=== PATIENT | female | born 1990 | race Caucasian/White ===

== ENCOUNTER 2017-11-09 17:12 | Observation (INO) | payer OTHER ==
[2017-11-09] MEDS ORDERED: PNV11TAB PO (17:59)
[2017-11-09 18:01] VITALS: BP 134/89
[2017-11-09 18:46] LABS: BASOPHILS % (AUTO) 0.7 % (0.0-2.0); EOSINOPHILS % (AUTO) 1.5 % (1.0-6.0); HEMATOCRIT 33.8 % (36-46); HEMOGLOBIN 11.5 g/dL (12.0-16.0); LYMPHOCYTES # (AUTO) 2.4 K/uL (1.0-4.8); LYMPHOCYTES % (AUTO) 22.4 % (22.0-44.0); MEAN CORPUSCULAR VOLUME 79 fL (80-100); MONOCYTES # (AUTO) 0.6 K/uL (0.1-1.0); MONOCYTES % (AUTO) 5.5 % (2.0-9.0); NEUTROPHILS # (AUTO) 7.5 K/uL (1.8-7.7); NEUTROPHILS % (AUTO) 69.9 % (40.0-70.0); PLATELET COUNT (AUTO)-OB 283 K/uL (150-450); RED BLOOD CELL COUNT(AUTO) 4.26 MIL/uL (4.00-5.20); RED CELL DISTRIBUTION WIDTH 14.3 % (11.5-14.5)
[2017-11-09 18:59] LABS: ANION GAP 7 mmol/L (8-16); CALCIUM, TOTAL 9.2 mg/dL (8.8-10.5); CARBON DIOXIDE 27 mmol/L (22-29); CHLORIDE 102 mmol/L (98-107); CREATININE 0.55 mg/dL (0.60-1.30); GLOMERULAR FILTR. RATE CALC > 60 mL/min (>60); GLUCOSE,RANDOM 91 mg/dL (70-110); POTASSIUM 4.1 mmol/L (3.5-5.1); SODIUM SERUM 136 mmol/L (136-145); UREA NITROGEN, BLOOD 10 mg/dL (7-18)
[2017-11-09 19:13] LABS: ALANINE AMINOTRANSFERASE 20 U/L (12-78); ALBUMIN 2.3 g/dL (3.4-5.0); ALKALINE PHOSPHATASE 154 U/L (46-116); ASPARTATE AMINOTRANSFERASE 15 U/L (15-37); TOTAL PROTEIN, SERUM 6.9 g/dL (6.4-8.2)
[2017-11-09 20:13] LABS: BILIRUBIN,TOTAL 0.1 mg/dL (0.1-1.0)
== END 2017-11-09 21:25 | disposition home or self-care (01) ==
LOC: 4S 17:12
PROVIDERS: ADMIT Specialist; ATTEND Specialist
DX: Z34.93 Encounter for supervision of normal pregnancy, unspecified, third trimester (principal); Z3A.36 36 weeks gestation of pregnancy
CPT/HCPCS: 36415; 59025; 76805; 80053; 84550; 85025; G0378

== ENCOUNTER 2017-11-11 17:13 | Inpatient (IN) | payer OTHER ==
[~2017-11-11] VITALS: Ht 157 cm; Wt 67.6 kg
[~2017-11-11 17:13] MED LIST: PNV11TAB PO
[2017-11-11] MEDS ORDERED: RINGERS SOLUTION,LACTATED 1,000 ML IV PRN (17:27)
[2017-11-11] MEDS ORDERED: RINGERS SOLUTION,LACTATED 1,000 ML IV SCH (17:27)
[2017-11-11] MEDS ORDERED: MAGNESIUM SULFATE 4 GM/WATER 100 ML IV ONE (17:30)
[2017-11-11] MEDS ORDERED: METOCLOPRAMIDE HCL 5 MG/ML 2 ML VIAL IVP PRN (17:30)
[2017-11-11] MEDS ORDERED: CITRIC ACID/SODIUM CITRATE 30 ML SOLUTION UDCUP PO PRN (17:30)
[2017-11-11] MEDS ORDERED: OXYTOCIN 30 UNITS/LACT RINGERS 500 ML IV PRN (17:42)
[2017-11-11] MEDS ORDERED: AMPICILLIN SODIUM 2 GM/NS 100 ML IV ONE ×2 (17:42→17:45)
[2017-11-11] MEDS ORDERED: MAGNESIUM SULFATE 500 ML IV SCH (17:45)
[2017-11-11] MEDS ORDERED: CALCIUM GLUCONATE 100 MG/ML 10 ML IVP PRN (17:45)
[2017-11-11] MEDS ORDERED: MISOPROSTOL 25 MCG TABLET VG SCH (18:00)
[2017-11-11] MEDS: RINGERS SOLUTION,LACTATED 1,000 ML IV SCH (18:10)
[2017-11-11 18:27] LABS: BASOPHILS % (AUTO) 0.8 % (0.0-2.0); EOSINOPHILS % (AUTO) 1.2 % (1.0-6.0); HEMATOCRIT 36.2 % (36-46); HEMOGLOBIN 12.5 g/dL (12.0-16.0); LYMPHOCYTES % (AUTO) 19.4 % (22.0-44.0); MEAN CORPUSCULAR HEMOGLOBIN 27.1 pg (26.0-34.0); MEAN CORPUSCULAR HGB CONC 34.5 G/dL (31.0-37.0); MEAN CORPUSCULAR VOLUME 78 fL (80-100); MONOCYTES # (AUTO) 0.4 K/uL (0.1-1.0); MONOCYTES % (AUTO) 3.8 % (2.0-9.0); NEUTROPHILS # (AUTO) 7.5 K/uL (1.8-7.7); NEUTROPHILS % (AUTO) 74.8 % (40.0-70.0); PLATELET COUNT (AUTO)-OB 327 K/uL (150-450); RED BLOOD CELL COUNT(AUTO) 4.61 MIL/uL (4.00-5.20); RED CELL DISTRIBUTION WIDTH 13.9 % (11.5-14.5)
[2017-11-11 19:19] VITALS: BP 152/92
[2017-11-11] MEDS ORDERED: OXYGEN THERAPY IH SCH (20:00)
[2017-11-11 21:02] LABS: RUBELLA SCREEN (IGG) IMMUNE (IMMUNE)
[2017-11-11] MEDS: AMPICILLIN SODIUM 1 GM/NS 50 ML IV SCH (23:58)
[2017-11-12] MEDS: MAGNESIUM SULFATE 500 ML IV SCH ×3 (03:37→19:01)
[2017-11-12] MEDS: AMPICILLIN SODIUM 1 GM/NS 50 ML IV SCH ×2 (04:16→07:44)
[2017-11-12] MEDS ORDERED: LIDOCAINE HCL/PF 2% 5 ML VIAL ONE (05:06)
[2017-11-12] MEDS ORDERED: ROPIVACAINE HCL 0.2% 100 ML ED ONE (05:06)
[2017-11-12] MEDS ORDERED: ONDANSETRON HCL 4 MG/2 ML VIAL IVP PRN (05:30)
[2017-11-12] MEDS ORDERED: NALBUPHINE HCL 10 MG/ML VIAL IVP PRN (05:30)
[2017-11-12] MEDS ORDERED: FentaNYL/BUPIV 0.125%/NS/PF 200 ML ED PRN (05:30)
[2017-11-12] MEDS ORDERED: DiphenhydrAMINE HCL 50 MG/ML VIAL IVP PRN (05:30)
[2017-11-12] MEDS ORDERED: IBUPROFEN 800 MG TABLET PO PRN (08:45)
[2017-11-12] MEDS ORDERED: GLYCERIN/WITCH HAZEL LEAF 40 PADS JAR TP PRN (08:45)
[2017-11-12] MEDS ORDERED: BENZOCAINE 20%/MENTHOL 56 GM SPRAY CANISTER TP PRN (08:45)
[2017-11-12] MEDS ORDERED: OxyCODONE HCL/ACETAMINOPHEN 5-325 MG TABLET PO PRN ×2 (08:45)
[2017-11-12] MEDS ORDERED: LANOLIN 7 GM OINTMENT TP PRN (08:45)
[2017-11-12] MEDS ORDERED: WATER IV ONE (08:45)
[2017-11-12] MEDS ORDERED: DEXTROSE 5% IV ONE (08:45)
[2017-11-12] MEDS ORDERED: METHYLERGONOVINE MALEATE 0.2 MG TABLET PO PRN (08:45)
[2017-11-12] MEDS ORDERED: MAGNESIUM SULFATE IV ONE (08:45)
[2017-11-12] MEDS: SENNA/DOCUSATE SODIUM 187-50 MG TABLET PO PRN ×2 (10:52→21:26)
[2017-11-12] MEDS: MAGNESIUM HYDROXIDE SUSPENSION 30 ML UDCUP PO PRN ×2 (10:52→21:26)
[2017-11-12] MEDS ORDERED: INFLUENZA VIRUS VACCINE QVS 2017-18 (3YR+)/PF 60 MCG/0.5 ML SYRINGE IM ONE (18:15)
[2017-11-13] MEDS: RINGERS SOLUTION,LACTATED 1,000 ML IV SCH (06:12)
[2017-11-13 06:14] LABS: BASOPHILS % (AUTO) 0.5 % (0.0-2.0); EOSINOPHILS % (AUTO) 1.8 % (1.0-6.0); HEMATOCRIT 31.7 % (36-46); HEMOGLOBIN 10.9 g/dL (12.0-16.0); LYMPHOCYTES % (AUTO) 23.9 % (22.0-44.0); MEAN CORPUSCULAR HEMOGLOBIN 26.9 pg (26.0-34.0); MEAN CORPUSCULAR HGB CONC 34.3 G/dL (31.0-37.0); MEAN CORPUSCULAR VOLUME 78 fL (80-100); MONOCYTES # (AUTO) 0.6 K/uL (0.1-1.0); MONOCYTES % (AUTO) 4.7 % (2.0-9.0); NEUTROPHILS # (AUTO) 8.7 K/uL (1.8-7.7); NEUTROPHILS % (AUTO) 69.1 % (40.0-70.0); PLATELET COUNT (AUTO)-OB 324 K/uL (150-450); RED BLOOD CELL COUNT(AUTO) 4.05 MIL/uL (4.00-5.20)
[2017-11-13] MEDS: FERROUS SULFATE 325 MG EC TABLET PO SCH (13:51)
[2017-11-13] MEDS ORDERED: IBUP-2070 PO (18:07)
[2017-11-13] MEDS ORDERED: FERR-89 PO (18:11)
[2017-11-13] MEDS ORDERED: DSS100 PO (18:13)
[2017-11-14] MEDS: FERROUS SULFATE 325 MG EC TABLET PO SCH (08:07)
== END 2017-11-14 15:15 | disposition home or self-care (01) | DRG 775 ==
LOC: OBSVTOIN 17:13 → 4S 17:13
PROVIDERS: ADMIT Specialist; ATTEND Specialist
PROC: 10E0XZZ Delivery of Products of Conception, External Approach (ICD-10-PCS; principal; 2017-11-12)
PROC: 0HQ9XZZ Repair Perineum Skin, External Approach (ICD-10-PCS; 2017-11-12)
PROC: 0W8NXZZ Division of Female Perineum, External Approach (ICD-10-PCS; 2017-11-12)
PROC: 3E0S3BZ Introduction of Anesthetic Agent into Epidural Space, Percutaneous Approach (ICD-10-PCS; 2017-11-12)
PROC: 00HU33Z Insertion of Infusion Device into Spinal Canal, Percutaneous Approach (ICD-10-PCS; 2017-11-12)
DX: O60.14X0 Preterm labor third trimester with preterm delivery third trimester, not applicable or unspecified (principal); O41.03X0 Oligohydramnios, third trimester, not applicable or unspecified; O70.0 First degree perineal laceration during delivery; O13.4 Gestational [pregnancy-induced] hypertension without significant proteinuria, complicating childbirth; Z37.0 Single live birth; Z3A.36 36 weeks gestation of pregnancy
CPT/HCPCS: 83735; 86592; 86762; 86850; 86900; 86901; 87340; 88307; J0290; J2590; J2795; J3475; J3490; J7060; J7120